=== PATIENT | female | born 1955 | race Caucasian/White ===

== ENCOUNTER 2024-07-13 10:33 | Outpatient (AMB) | payer OTHER, SELFPAY ==
--- NOTE | 2024-07-13 10:44 | MHC.OFFVIS ---
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 No hx of injury. Patient states ongoing pain for about 7 months. Her pain is focused on the lateral aspect of the shoulder. She mentions that her pain is worse when she is laying down when she is holding her phone. Patient reports her pain is better today and would like to the x rays. Service Support Representative Required: Yes Service Support Representative Language: Kinyarwanda Information Interpreted: clinical only Accompanied by: Daughter Allergies No Known Allergies Allergy (Verified 07/13/24 10:56) HPI HPI CONSTRUCTION PERSON-Left shoulder Pain: Details: The patient is a 69-year-old right hand dominant female presenting with left shoulder pain. The pain started about seven months ago without any precipitating injury. She experienced discomfort initially in activities that required lifting and full arm motion. The patient's pain has shown improvement over time, scaling down from a severe level of 10/10 to the current state of 5/10. She notes rest and modified activity levels help in managing the symptoms, consistent with osteoarthritis patterns, where activity can lead to pain flare-ups that decrease with rest. [facility] Social History (Updated 07/13/24 @ 10:59 by Kathryn Sanders) Alcohol intake: never Patient Tobacco Use Status: Never used Tobacco Current occupational status: retired Current occupation: right hand dominant Review of Systems Const All systems reviewed & are unremarkable except as noted in HPI and below Physical Exam Vital Signs: BMI result Body Mass Index 24.5 Const General: cooperative, healthy appearing and no acute distress Resp Effort & Inspection: normal respiratory effort and able to speak in complete sentences Cardio Rate: regular rate Peripheral pulses: Peripheral pulses 2+ throughout Skin Lesions: no lesions Rashes: no rashes Extrem Other: Left shoulder: Normal to inspection. No ecchymosis, erythema, or edema. Full shoulder ROM in all planes. Negative cross-body reach. Negative empty can. Negative drop arm. NVI. Assessment & Plan Assessment & Plan (1) Tendinitis of left rotator cuff: Code(s): M75.82 - Other shoulder lesions, left shoulder Category: Medical Plan The patient was informed that current management for left shoulder tendonitis would be conservative since her pain is improving gradually and interventions like cortisone injections would be postponed unless necessary. Advised rest and managing activities will help in sustaining the improvement. I did discuss the role of physical therapy however the patient would like to defer this time. Should symptoms worsen, we agree to reconsider injections or therapy. Continuation of observation and management is currently in place. X-rays of the left shoulder which were obtained while in the office today and were reviewed by me, June Lovelace PA-C, revealed negative for any acute fracture dislocation. Orders: Orders XR shoulder LT min 2V Today M25.519 - Pain in unspecified shoulder Coding Level of Care Code New Pt Level 3 (33381) Diagnoses Tendinitis of left rotator cuff M75.82
[2024-07-13 10:59] VITALS: BMI 24.5
== END 2024-07-13 11:12 | disposition home or self-care (01) ==
LOC: HO.HOS 10:34
PROVIDERS: PCP Internal Medicine; Visit Provider Physician Assistant
DX: M75.82 Other shoulder lesions, left shoulder (principal)
CPT/HCPCS: 99203

== ENCOUNTER → 2024-07-13 10:37 | Outpatient (BNV) | payer OTHER, SELFPAY | PROVIDERS: Visit Provider Radiology Diagnostic Radiology | DX: M19.012 Primary osteoarthritis, left shoulder (principal) | CPT/HCPCS: 73030 ==

== ENCOUNTER 2024-07-13 10:40 | Outpatient (REF) | payer OTHER, SELFPAY ==
--- NOTE | ~2024-07-13 | XR_ITS ---
EXAMINATION: XR SHOULDER 2 OR MORE VIEWS LEFT HISTORY: M25.519 - Pain in unspecified shoulder COMPARISON: There are no prior studies available for comparison. FINDINGS: Three views of the left shoulder are submitted. Osseous mineralization is normal. There is no fracture or dislocation. The glenohumeral joint is maintained. There is moderate osteoarthritis of the AC joint with joint space narrowing and osteophyte formation. The soft tissues are unremarkable. XR/XR shoulder LT min 2V IMPRESSION: Moderate osteoarthritis of the AC joint. Electronically signed by: Bk Alvares MD 07/13/2024 02:18 PM EDT
== END 2024-07-13 10:41 | disposition home or self-care (01) ==
LOC: HO.HOSX 10:40
PROVIDERS: Visit Provider Physician Assistant
DX: M75.82 Other shoulder lesions, left shoulder (principal)
CPT/HCPCS: 73030; 99202